=== PATIENT | female | born 1985 | race Hispanic/Latino ===

== ENCOUNTER 2016-07-26 21:45 | Emergency (ER) | payer OTHER ==
[2016-07-26 22:15] VITALS: PULSE 87; RESP 16; TEMP 98.2; O2SAT 100
--- NOTE | 2016-07-26 23:14 | ED PDOC ---
HPI: General Adult Time Seen by Provider: 07/26/16 22:36 Chief Complaint (Nursing): Headache Chief Complaint (Provider): headache, dizziness History Per: Patient Additional Complaint(s): 30-year-old female presents with headache and slight dizziness status post head injury sustained this morning. Patient was on her way to work when she accidentally hit her head on a shuttle bus. Patient denies loss of consciousness at time of injury. Patient went to work and took Advil for headache which did help. Over the past couple of hours patient has noticed worsening dizziness although states that headache pain is only a 5 out of 10. Patient denies vision changes and she has waves of mild nausea with no vomiting. She denies any syncopal episodes or associated neck pain. Past Medical History Reviewed: Historical Data, Nursing Documentation, Vital Signs Vital Signs: Last Vital Signs Temp 98.2 F 07/26/16 22:08 Pulse 87 07/26/16 22:08 Resp 16 07/26/16 22:08 BP 154/93 H 07/26/16 22:08 Pulse Ox 100 07/26/16 22:08 - Medical History PMH: No Chronic Diseases - Surgical History Surgical History: No Surg Hx - Family History Family History: States: No Known Family Hx - Living Arrangements Living Arrangements: Alone - Social History Current smoker - smoking cessation education provided: No Alcohol: None Drugs: Denies - Allergies Allergies/Adverse Reactions: Allergies Allergy/AdvReac Type Severity Reaction Status Date / Time No Known Allergies Allergy Verified 07/26/16 22:08 Review of Systems ROS Statement: Except As Marked, All Systems Reviewed And Found Negative Gastrointestinal: Positive for: Nausea. Negative for: Vomiting Neurological: Positive for: Dizziness, Other (Head injury with no loss of consciousness sustained at 8 AM this morning) Physical Exam - Reviewed Nursing Documentation Reviewed: Yes Vital Signs Reviewed: Yes - Physical Exam Appears: Positive for: Well, Non-toxic, No Acute Distress Head Exam: Positive for: ATRAUMATIC, NORMAL INSPECTION, NORMOCEPHALIC Eye Exam: Positive for: EOMI, Normal appearance, PERRL ENT: Positive for: Normal ENT Inspection Neck: Positive for: Normal, Painless ROM Cardiovascular/Chest: Positive for: Regular Rate, Rhythm Respiratory: Positive for: CNT, Normal Breath Sounds Extremity: Positive for: Normal ROM. Negative for: Pedal Edema Neurologic/Psych: Positive for: Alert, Oriented, Gait (steady). Negative for: Aphasia, Facial Droop - ECG O2 Sat by Pulse Oximetry: 100 Pulse Ox Interpretation: Normal Medical Decision Making Medical Decision Makin-year-old with head injury. Clinical presentation consistent with concussion. Patient did not sustain loss of consciousness at time of injury this morning and states that headache has improved throughout the day. Patient was offered option of CT head but she declined secondary to concern for radiation exposure. Patient prefers to proceed with conservative treatment at this time. Warning signs of worsening head injury were discussed in detail with the patient and patient was advised to return to ED if acutely worse at any time. Patient's states she is mildly nauseous but denies any vomiting and declined any anti-emetic at this time. Patient was instructed to continue with Tylenol for pain as needed and was advised to follow-up in one to 2 days with primary care doctor or return any time for any concerns. Patient is accompanied to ER by her brother who will stay with her this evening. Disposition - Clinical Impression Clinical Impression: Head injury, Concussion - Patient ED Disposition Is Patient to be Admitted: No Counseled Patient/Family Regarding: Diagnosis, Need For Followup - Disposition Referrals: [facility] [Outside] Disposition: Routine/Home Disposition Time: 23:11 Condition: STABLE Additional Instructions: Rest as much as possible. Take Tylenol every 4-6 hours for headache as needed. Drink plenty of fluids. Monitor symptoms closely in the next 24-48 hours and return to ED for any concerns or worsening symptoms at any time. Otherwise follow-up with primary doctor in 1-2 days. Instructions: Concussion (ED), Head Injury (ED)
[2016-07-26 23:31] VITALS: BP 120/78
== END 2016-07-26 23:29 | disposition home or self-care (01) ==
LOC: H.ER 21:45
DX: S06.0X0A Concussion without loss of consciousness, initial encounter (principal); S09.90XA Unspecified injury of head, initial encounter; V79.88XA Bus occupant (driver) (passenger) injured in other specified transport accidents, initial encounter; Y93.9 Activity, unspecified